=== PATIENT | female | born 1950 | race Caucasian/White ===

== ENCOUNTER 2020-02-01 15:33 | Emergency (ER) | payer MEDICARE ==
[2020-02-01] MEDS ORDERED: diphenhydrAMINE 50 MG/ML SDV IVPUSH ONE (15:42)
[2020-02-01] MEDS ORDERED: Sodium Chloride 0.9% 10 ML Syringe FLUSH PRN (15:42)
[2020-02-01] MEDS ORDERED: Famotidine 20 MG/2 ML SDV IVPUSH ONE (15:42)
[2020-02-01] MEDS ORDERED: Sodium Chloride 0.9% 1,000 ML IV SCH (15:45)
[2020-02-01] MEDS ORDERED: Albuterol 6.7 GM Inhaler INH ONE (16:01)
--- NOTE | 2020-02-01 16:23 | EDM.PDOC ---
ED HPI GENERAL MEDICAL PROBLEM - General Chief Complaint: Chest Pain Stated Complaint: [facility] Time Seen by Provider: 02/01/20 15:35 Source of Information: Reports: Patient History Limitations: Reports: No Limitations - History of Present Illness INITIAL COMMENTS - FREE TEXT/NARRATIVE: The patient presents by [facility] for an allergic reaction. She was at the dentist today and given amoxicillin for dental abscess. She took a dose and had some burning chest pain and red skin. She went to [facility] and they gave her some solu-medrol and she took some benadryl. She did start to feel better and then she got worse and had nausea and vomiting. They put in an IV and gave her fluid and some zofran and sent her by ambulance. She has never reacted like this before. She has no shortness of breath and she has no trouble swallowing or breathing. She does have some swelling to her face now. Onset: Sudden Duration: Hour(s): Location: Reports: Chest, Generalized Quality: Reports: Burning Severity: Moderate Improves with: Reports: None Worsens with: Reports: None Associated Symptoms: Reports: Chest Pain. Denies: Cough, Fever/Chills, Headaches, Nausea/Vomiting, Shortness of Breath Treatments SECURITY INSTALLATION TECHNICIAN: Reports: Other (see below) Other Treatments SECURITY INSTALLATION TECHNICIAN: LR, zofran Chest Pain Score (Numeric/FACES): 6 - Related Data Allergies Allergy/AdvReac Type Severity Reaction Status Date / Time tetracycline Allergy Severe Swelling Verified 02/01/20 15:40 amoxicillin Allergy Other Verified 02/01/20 15:40 Home Meds: Home Meds predniSONE [Prednisone] 40 mg PO DAILY #10 tablet 02/01/20 [Rx] Past Medical History Gastrointestinal History: Reports: GERD - Past Surgical History HEENT Surgical History: Reports: Other (See Below) Other HEENT Surgeries/Procedures: infected tooth Social & Family History - Tobacco Use Smoking Status *Q: Never Smoker ED ROS GENERAL - Review of Systems Review Of Systems: See Below Constitutional: Reports: No Symptoms HEENT: Reports: No Symptoms Respiratory: Reports: No Symptoms Cardiovascular: Reports: Chest Pain Endocrine: Reports: No Symptoms GI/Abdominal: Reports: Nausea, Vomiting. Denies: Abdominal Pain : Reports: No Symptoms Musculoskeletal: Reports: No Symptoms Skin: Reports: Rash ED EXAM, GENERAL - Physical Exam Exam: See Below Exam Limited By: No Limitations General Appearance: Alert, No Apparent Distress Ears: Normal External Exam Nose: Normal Inspection Head: Atraumatic, Normocephalic Neck: Normal Inspection Respiratory/Chest: No Respiratory Distress, Lungs Clear, Normal Breath Sounds Cardiovascular: Regular Rate, Rhythm, No Edema, No Murmur GI/Abdominal: Soft, Non-Tender, No Organomegaly, No Mass Back Exam: Normal Inspection Extremities: Normal Inspection EKG INTERPRETATION EKG Date: 02/01/20 Time: 14:42 Rhythm: NSR Rate (Beats/Min): 88 [place]: Normal P-Wave: Present QRS: Normal ST-T: Normal QT: Normal EKG Interpretation Comments: Q waves in the anteroseptal leads Course - Vital Signs Last Recorded V/S: Last Vital Signs Temp 97.4 F 02/01/20 15:37 Pulse 91 02/01/20 15:37 Resp 16 02/01/20 15:37 BP 109/74 02/01/20 15:37 Pulse Ox 98 02/01/20 16:13 - Orders/Labs/Meds Orders: Active Orders 24 hr Category Date Time Status Cardiac Monitoring [RC] . DIRECTED Care 02/01/20 16:01 Active Peripheral IV Care [RC] . DIRECTED Care 02/01/20 15:42 Active RT Post Treatment Assessment [RC] Click to Edit Care 02/01/20 16:02 Active RT Pre-Treatment Assessment [RC] Click to Edit Care 02/01/20 16:02 Active Chest 1V Frontal [CR] Stat Exams 02/01/20 16:01 Taken Sodium Chloride 0.9% [Normal Saline] 1,000 ml Med 02/01/20 15:45 Active IV ASDIRECTED Sodium Chloride 0.9% [Saline Flush] Med 02/01/20 15:42 Active 10 ml FLUSH ASDIRECTED PRN Peripheral IV Insertion Adult [OM.PC] Routine Oth 02/01/20 15:42 Ordered Medication Orders Sodium Chloride (Normal Saline) 1,000 mls @ 150 mls/hr IV ASDIRECTED MARQUES Last Admin: 02/01/20 15:50 Dose: 150 mls/hr Sodium Chloride (Saline Flush) 10 ml FLUSH ASDIRECTED PRN PRN Reason: Keep Vein Open Last Admin: 02/01/20 15:50 Dose: 10 ml Labs: Laboratory Tests 02/01/20 02/01/20 Range/Units 16:05 16:05 WBC 13.38 H (3.98-10.04) K/mm3 RBC 5.58 H (3.98-5.22) M/mm3 Hgb 16.7 H (11.2-15.7) gm/dl Hct 48.3 H (34.1-44.9) % MCV 86.6 (79.4-94.8) fl MCH 29.9 (25.6-32.2) pg MCHC 34.6 (32.2-35.5) g/dl RDW Std Deviation 41.2 (36.4-46.3) fL Plt Count 165 L (182-369) K/mm3 MPV 12.7 H (9.4-12.3) fl Neut % (Auto) 82.7 H (34.0-71.1) % Lymph % (Auto) 10.2 L (19.3-51.7) % [place] % (Auto) 6.5 (4.7-12.5) % Eos % (Auto) 0.3 L (0.7-5.8) Baso % (Auto) 0.1 (0.1-1.2) % Neut # (Auto) 11.06 H (1.56-6.13) K/mm3 Lymph # (Auto) 1.37 (1.18-3.74) K/mm3 [place] # (Auto) 0.87 H (0.24-0.36) K/mm3 Eos # (Auto) 0.04 (0.04-0.36) K/mm3 Baso # (Auto) 0.01 (0.01-0.08) K/mm3 Manual Slide Review Normal smear Sodium 142 (136-145) mEq/L Potassium 3.2 L (3.5-5.1) mEq/L Chloride 104 (98-107) mEq/L Carbon Dioxide 27 (21-32) mEq/L Anion Gap 14.2 (5-15) BUN 21 H (7-18) mg/dL Creatinine 1.2 H (0.55-1.02) mg/dL Est Cr Clr Drug Dosing TNP Estimated GFR (MDRD) 44 (>60) mL/min BUN/Creatinine Ratio 17.5 (14-18) Glucose 176 H (83-115) mg/dL Calcium 8.6 (8.5-10.1) mg/dL Total Bilirubin 0.4 (0.2-1.0) mg/dL AST 21 (15-37) U/L ALT 25 (14-59) U/L Alkaline Phosphatase 68 (46-116) U/L Troponin I < 0.017 (0.00-0.056) ng/mL Total Protein 6.4 (6.4-8.2) g/dl Albumin 3.4 (3.4-5.0) g/dl Globulin 3.0 gm/dL Albumin/Globulin Ratio 1.1 (1-2) Meds: Medications Generic Name Dose Route Start Last Admin Trade Name Freq PRN Reason Stop Dose Admin Sodium Chloride 1,000 mls @ 150 mls/hr 02/01/20 15:45 02/01/20 15:50 Normal Saline IV 150 mls/hr ASDIRECTED MARQUES Administration Sodium Chloride 10 ml 02/01/20 15:42 02/01/20 15:50 Saline Flush FLUSH 10 ml ASDIRECTED PRN Administration Keep Vein Open Discontinued Medications Generic Name Dose Route Start Last Admin Trade Name Freq PRN Reason Stop Dose Admin Albuterol 0 gm 02/01/20 16:01 02/01/20 16:11 Proventil Hfa INH 02/01/20 16:02 2 puff ONETIME ONE Administration Diphenhydramine HCl 25 mg 02/01/20 15:42 02/01/20 15:50 Benadryl IVPUSH 02/01/20 15:43 25 mg ONETIME ONE Administration Famotidine 20 mg 02/01/20 15:42 02/01/20 15:49 Pepcid IVPUSH 02/01/20 15:43 20 mg ONETIME ONE Administration - Re-Assessments/Exams Free Text/Narrative Re-Assessment/Exam: 02/01/20 16:40 I ordered an IV NS at 150mL/hr, pepcid 20m IV, benadryl 25mg IV, albuterol 25mg IV, CXR and labs. Her EKG shows a NSR with Q waves in the anterior leads. 02/01/20 17:37 Her CXR looks good. Her WBC is elevated at 13.38. Her hgb is elevated at 16.7. Her platelets were low at 165. Her creatinine is elevated at 1.2. Her K was a little low at 3.2. Her troponin is negative. 02/01/20 17:41 She is feeling much better. I will discharge her home. I will get her on some prednisone and she should take pepcid and benadryl as needed. Departure - Departure Time of Disposition: 17:45 Disposition: Home, Self-Care 01 Condition: Good Clinical Impression: Allergic reaction to penicillin Qualifiers: Encounter type: initial encounter Qualified Code(s): T36.0X5A - Adverse effect of penicillins, initial encounter Prescriptions: predniSONE [Prednisone] 40 mg PO DAILY #10 tablet Referrals: Page Linder PA-C [Primary Care Provider] - 1 Week Forms: ED Department Discharge Additional Instructions: You are very allergic to penicillins do not take them again. Take the prednisone 40mg daily for 5 days. Take pepcid 20mg daily for 5 days. Take benadryl 50mg every 6 hours as needed for rash or allergy symptoms. Please return if you are worse. Sepsis Event Note - Evaluation Sepsis Screening Result: No Definite Risk - Focused Exam Vital Signs: Vital Signs Temp Pulse Resp BP Pulse Ox Pulse Ox 02/01/20 16:13 98 02/01/20 15:37 97.4 F 91 16 109/74 91 L Date Exam was Performed: 02/01/20 Time Exam was Performed: 17:41 - My Orders Last 24 Hours: My Active Orders 02/01/20 15:42 Peripheral IV Care [RC] . DIRECTED Sodium Chloride 0.9% [Saline Flush] 10 ml FLUSH ASDIRECTED PRN Peripheral IV Insertion Adult [OM.PC] Routine 02/01/20 15:45 Sodium Chloride 0.9% [Normal Saline] 1,000 ml IV ASDIRECTED 02/01/20 16:01 Cardiac Monitoring [RC] . DIRECTED Chest 1V Frontal [CR] Stat 02/01/20 16:02 RT Post Treatment Assessment [RC] Click to Edit RT Pre-Treatment Assessment [RC] Click to Edit - Assessment/Plan Last 24 Hours: My Active Orders 02/01/20 15:42 Peripheral IV Care [RC] . DIRECTED Sodium Chloride 0.9% [Saline Flush] 10 ml FLUSH ASDIRECTED PRN Peripheral IV Insertion Adult [OM.PC] Routine 02/01/20 15:45 Sodium Chloride 0.9% [Normal Saline] 1,000 ml IV ASDIRECTED 02/01/20 16:01 Cardiac Monitoring [RC] . DIRECTED Chest 1V Frontal [CR] Stat 02/01/20 16:02 RT Post Treatment Assessment [RC] Click to Edit RT Pre-Treatment Assessment [RC] Click to Edit
[2020-02-01 18:15] VITALS: BP 109/85; PULSE 88
--- NOTE | 2020-02-02 08:31 | CR ---
Chest: Portable view of the chest was obtained. Comparison: No prior chest imaging is available. Heart size and mediastinum are normal. Lungs are clear with no acute parenchymal change. Old healed right clavicle fracture is noted. Impression: 1. Nothing acute is appreciated on portable chest x-ray. Diagnostic code #2 This report was dictated in MDT
== END 2020-02-01 18:05 | disposition home or self-care (01) ==
LOC: JD.ED 15:33
DX: R07.9 Chest pain, unspecified (principal); T36.0X5A Adverse effect of penicillins, initial encounter; Z88.1 Allergy status to other antibiotic agents; Z79.899 Other long term (current) drug therapy
CPT/HCPCS: 36415; 71045; 80053; 84484; 85025; 94640; 96361; 96374; 96375; 99285; A9270; J1200; J3490; J7030; 93010; 99284

== ENCOUNTER 2024-09-09 08:30 | Day surgery (SDC) | payer MEDICARE ==
[~2024-09-09 08:30] MED LIST: Morphine 8 MG, EPINEPHrine 0.3 MG, Cefuroxime 750 MG, Ketorolac 30 MG, Sodium Chloride ... PRN; Sodium Chloride 0.9% 10 ML Syringe FLUSH PRN; Sodium Chloride 0.9% 10 ML Syringe FLUSH SCH
[2024-09-09] MEDS ORDERED: Clindamycin Phosphate in D5W 900 MG in Premix Bag 1 BAG IV ONE (08:45)
[2024-09-09] MEDS: Lactated Ringers 1,000 ML IV SCH (09:00)
[2024-09-09] MEDS ORDERED: oxyCODONE 5 MG Tab PO PRN (09:53)
[2024-09-09] MEDS: VANCOmycin 1.5 GM/300 ML 1.5 GM in Premix Bag 1 BAG IV ONE (10:00)
[2024-09-09] MEDS: Acetaminophen 325 MG Tab PO SCH (10:07)
[2024-09-09] MEDS: Pregabalin 25 MG Cap PO SCH (10:07)
[2024-09-09] MEDS: oxyCODONE ER 10 MG TAB.ER PO SCH (10:08)
[2024-09-09] MEDS ORDERED: Midazolam 1 MG/ML 2 ML SDV ONE (10:15)
[2024-09-09] MEDS ORDERED: Ropivacaine 0.5% 5 MG/ML 30 ML SDV ONE (10:15)
[2024-09-09] MEDS ORDERED: Propofol 200 MG/20 ML SDV ONE (11:29)
[2024-09-09] MEDS ORDERED: Lidocaine 1% 5 ML VIAL ONE (11:31)
[2024-09-09] MEDS ORDERED: Phenylephrine 1% 10 MG/ML SDV ONE (11:39)
[2024-09-09] MEDS: Morphine 8 MG, EPINEPHrine 0.3 MG, Ketorolac 30 MG, Sodium Chloride 0.9% 7.9 ML PRN (11:53)
[2024-09-09] MEDS: VANCOmycin 1 GM SDV ONE (12:00)
[2024-09-09] MEDS: Tranexamic Acid 1,000 MG/10 ML Vial ONE (12:00)
[2024-09-09] MEDS: Triamcinolone Acetonide 40 MG/ML 1 ML SDV ONE (12:14)
[2024-09-09] MEDS: Bupivacaine 0.25% 10 ML SDV ONE (12:14)
[2024-09-09 15:47] VITALS: BP 107/77; PULSE 63
== END 2024-09-09 16:10 | disposition home or self-care (01) ==
LOC: JD.SDS 08:30
PROVIDERS: ATTEND Orthopaedic Surgery
DX: M17.0 Bilateral primary osteoarthritis of knee (principal); I10 Essential (primary) hypertension; E66.9 Obesity, unspecified; K21.9 Gastro-esophageal reflux disease without esophagitis; E78.5 Hyperlipidemia, unspecified; E11.9 Type 2 diabetes mellitus without complications; Z88.1 Allergy status to other antibiotic agents; Z88.8 Allergy status to other drugs, medicaments and biological substances; Z79.84 Long term (current) use of oral hypoglycemic drugs; Z79.899 Other long term (current) drug therapy
CPT/HCPCS: 0055T; 20610; 27447; 73560; 97110; 97116; 97161; A9270; J0171; J0665; J1885; J2250; J2272; J2371; J2704; J2795; J3301; J3372; J7120; J3490